=== PATIENT | female | born 1980 | race Hispanic/Latino ===

== ENCOUNTER 2021-10-21 09:24 | Day surgery (SDC) | payer BC, OTHER ==
[2021-10-21] MEDS ORDERED: Ringers Lactate 1,000 ML IV ONE (09:52)
[2021-10-21 10:08] VITALS: O2SAT 100
[2021-10-21] MEDS ORDERED: MIDAZOLAM HCL 2 MG/2 ML INJ ONE (11:05)
[2021-10-21] MEDS ORDERED: ROCURONIUM 50 MG/5 ML VIAL IV ONE (11:05)
[2021-10-21] MEDS ORDERED: propofoL 200 MG/20 ML VIAL IV ONE (11:05)
[2021-10-21] MEDS ORDERED: LIDOCAINE 1% MPF 5 ML VIAL ONE (11:05)
[2021-10-21] MEDS ORDERED: FENTANYL CITR 100 MCG/2 ML ONE (11:05)
[2021-10-21] MEDS ORDERED: GLYCOPYRROLATE 0.2 MG/ML SYR ONE ×2 (11:53→12:00)
[2021-10-21] MEDS ORDERED: dexAMETHasone 10 MG/ML VIAL ONE (11:53)
[2021-10-21] MEDS ORDERED: KETOROLAC 30 MG/ML INJ ONE (11:54)
[2021-10-21] MEDS ORDERED: ONDANSETRON 4 MG/2 ML VIAL ONE (11:57)
[2021-10-21] MEDS ORDERED: Phenylephrine HCl 10 MG/ML 1 ML VIAL ONE (12:00)
[2021-10-21] MEDS ORDERED: NEOSTIGMINE 1 MG/ML -5 ML ONE (12:01)
[2021-10-21 13:12] VITALS: BP 128/70; TEMP 97.1
[2021-10-21] MEDS ORDERED: CODEINE 12mg/APAP 120mg PER 5 ML UCUP ONE (13:49)
--- NOTE | 2021-10-21 13:59 | OP ---
Date of Procedure: 10/21/2021 Surgeon: MELISSA AYALA Primary Care Physician: Unknown. Preoperative Diagnoses: 1.Chronic tonsillitis. 2.Tonsilolithiasis. 3.Left tonsil nodule. Postoperative Diagnoses: 1.Chronic tonsillitis. 2.Tonsilolithiasis. 3.Left tonsil nodule. Procedure: Tonsillectomy. Anesthesia: General endotracheal anesthesia was administered. I also infiltrated approximately 6 mL of 0.25% bupivacaine without epinephrine into bilateral tonsillar fossae and soft palate and uvula. Estimated Blood Loss: 3-5 mL. Specimens: Bilateral tonsils submitted to pathology for evaluation. Findings: Bilateral cryptic tonsils with tonsilolithiasis of bilateral tonsils and inflammation and evidence of benign left tonsil nodule. Complications: None. Disposition: Stable. The patient tolerated the procedure well. Indication For Procedure: The patient is a pleasant 41-year-old female, [facility]standing bilateral tonsillitis and chronic throat pain secondary to tonsi lolithiasis and tonsil nodule. Her condition has been refractory to outpatient oral antibiotics. Th lety were indications to bring the patient to operative suite for the above-mentioned procedure. She understood. All questions were answered. Risks versus benefits and complications were explained in detail and a consent form was signed, which was placed in the chart. Description Of Procedure: The patient was transferred from the preoperative holding area to the hospital [facility] suite Department of Anesthesia, placed on the operating table supine, sedated, and intubated in the normal fashion. The table was rotated 90 degrees and a head turban was placed. No shoulder rol l was needed as the patient was placed into reverse Trendelenburg for the surgery. A moist Ray-Berny w as placed over the upper lip for protection. A McIvor retractor was introduced into the right oral commissure and directed along the endotracheal tube and suspended from the Hurtado stand. Tonsils were removed by retracting the superior poles midlin e and dissecting through the mucosa down. The peritonsillar fascial plane was performed with needlep oint electrocautery on the twentieth setting of coagulation. Dissection continued within the planes whereby the inferior poles were amputated with suction Bovie. Saline irrigation was introduced in th e oral cavity and removed with suction Bovie. All areas were checked for hemostasis and hemostasis w as achieved. A flexible orogastric tube was inserted into the esophagus and stomach and all fluid co ntents were removed. I infiltrated the bilateral tonsillar fossae and soft palate and uvula with faisal roximately 6 mL of 0.25% bupivacaine without epinephrine. The patient was then de-suspended and McIv or retractor was removed. The patient's jaw was checked and found to be in proper alignment. Head t urban was removed and the patient was transferred back to Department of Anesthesia in stable conditio n where she was subsequently awakened, extubated, transferred to the postoperative care unit. She wi ll be discharged home on analgesic medications and will follow up in 1-2 weeks or sooner if needed. SHANEKA/MOIRA Voice ID: [id number] Report ID: [id number]
== END 2021-10-21 14:09 | disposition home or self-care (01) ==
LOC: OR 09:24
PROVIDERS: ATTEND Otolaryngology Facial Plastic Surgery
PROC: 0CTPXZZ Resection of Tonsils, External Approach (ICD-10-PCS; principal; 2021-10-21 11:30)
DX: J35.01 Chronic tonsillitis (principal); D10.4 Benign neoplasm of tonsil; J35.8 Other chronic diseases of tonsils and adenoids; Z20.822 Contact with and (suspected) exposure to COVID-19
CPT/HCPCS: 88304; 42826; U0003; J2704; J2250; J3010; J1100; J2710; J7120; J2405; J2370